=== PATIENT | female | born 1945 | race Caucasian/White ===

== ENCOUNTER 2016-04-27 09:47 | Observation (INO) | payer OTHER ==
[~2016-04-27] VITALS: Ht 170.2 cm; Wt 96.1 kg
[~2016-04-27 09:47] MED LIST: B COMPLETE1 EACH PO; BENADRYL25 MG PO; COLACE100 MG PO; DITROPAN5 MG PO; ELAVIL50 MG PO; FAMOTIDINE20 MG PO; FLEXERIL10 MG PO; GLIMEPIRIDE4 MG PO; HUMULIN N100 UNITS/ SC; LEVOFLOXACIN500 MG PO; LIVALO4 MG PO; LOPRESSOR50 MG PO; LOSARTAN POTASS50 MG PO; METFORMIN HCL500 MG PO; NITROSTAT0.4 MG SL; PREDNISONE20 MG PO; RANITIDINE HCL75 MG PO; ST. JOSEPH ASPI81 MG PO; STIOLTO RESPIMAT4 GM IH; TRENTAL400 MG PO; VITAMIN B12 100MCG PO
[2016-04-27 10:54] LABS: EOSINOPHIL (%) 4.4 % (0-5); EOSINOPHIL COUNT 0.3 K/uL (0-0.3); HEMATOCRIT 32.9 % (36.0-46.0); IMMATURE GRANULOCYTE (%) 0.3 % (0.0-0.7); IMMATURE GRANULOCYTE COUNT 0.2 K/uL; LYMPHOCYTE COUNT 1.5 K/uL (1.0-2.8); MCH 31.5 PG (29.0-34.0); MCHC 34.7 G/DL (30.0-36.0); MCV 90.9 FL (83-99); MEAN PLAT.VOLUME 9.4 uM^3 (9.5-12.4); MONOCYTE (%) 6.9 % (3-12); MONOCYTE COUNT 0.4 K/uL (0-0.8); NEUTROPHIL (%) 64.3 % (45-76); NEUTROPHIL COUNT 4.1 K/uL (1.8-6.4); PLATELET COUNT 163 K/uL (156-360); RBC DIS.WIDTH-CV 12.3 % (11.8-14.6); RBC DIS.WIDTH-SD 39.4 % (39-53); RED BLOOD COUNT 3.62 M/uL (3.80-5.20); WHITE BLOOD COUNT 6.4 K/uL (4.1-10.2)
[2016-04-27 11:02] LABS: CHLORIDE 102 mEq/L (99-109); POTASSIUM 4.4 mEq/L (3.7-5.4); SODIUM 139 mEq/L (136-147)
[2016-04-27 11:03] LABS: PROTHROMBIN TIME 10.4 (9.2-11.2)
[2016-04-27] MEDS ORDERED: LOSARTAN POTAS100 MG PO (11:03)
[2016-04-27 11:04] LABS: GLUCOSE 218 mg/dL (70-99)
[2016-04-27] MEDS ORDERED: LOPRESSOR25 MG PO (11:04)
[2016-04-27 11:06] LABS: ANION GAP 12 MEQ/L (2-14)
[2016-04-27 11:08] LABS: GFR ESTIMATE (CALCULATED) > 59 mL/min/
[2016-04-27] MEDS ORDERED: HYDROCHLOROTHIA25 MG PO (11:08)
[2016-04-27 11:09] LABS: UREA NITROGEN (BUN) 23 mg/dL (9-23)
[2016-04-27] MEDS ORDERED: LANTUS 3 M100 UNITS1 SC (11:09)
[2016-04-27] MEDS ORDERED: CLOPIDOGREL75 MG PO (11:09)
[2016-04-27] MEDS ORDERED: TERBINAFINE HC250 MG PO (11:12)
[2016-04-27] MEDS ORDERED: TRAMADOL HCL50 MG PO (11:12)
[2016-04-27] MEDS ORDERED: TYLENOL EXTRA500 MG PO (11:13)
[2016-04-27 11:14] LABS: TROP-I INTERPRETATION NEGATIVE; TROPONIN-I 0.02 ng/mL (0.0-0.30)
[2016-04-27 12:49] LABS: TROP-I INTERPRETATION NEGATIVE; TROPONIN-I 0.02 ng/mL (0.0-0.30)
[2016-04-27 13:50] VITALS: BP 152/85
[2016-04-27 17:38] LABS: POINT-OF-CARE METER ID UU13113700
[2016-04-27 18:23] LABS: TROP-I INTERPRETATION NEGATIVE; TROPONIN-I < 0.01 ng/mL (0.0-0.30)
[2016-04-27 20:00] VITALS: BP 152/79
[2016-04-27 21:12] LABS: POINT-OF-CARE METER ID UU13113700
[2016-04-27 23:49] VITALS: BP 140/80
[2016-04-28 01:01] LABS: TROP-I INTERPRETATION NEGATIVE; TROPONIN-I < 0.01 ng/mL (0.0-0.30)
[2016-04-28 04:40] VITALS: BP 189/78
[2016-04-28 07:53] VITALS: BP 138/90
[2016-04-28 08:04] LABS: POINT-OF-CARE METER ID UU14162513
[2016-04-28 10:59] VITALS: BP 132/90
[2016-04-28 12:33] LABS: POINT-OF-CARE METER ID UU14162513
[2016-05-03] MEDS ORDERED: PRILOSEC20 MG PO (16:38)
[2016-05-04] MEDS ORDERED: RANEXA500 MG PO (09:32)
== END 2016-04-28 14:31 | disposition home or self-care (01) ==
LOC: EME 09:47 → EDOF 11:22 → 5WEST 11:22
PROVIDERS: Emergency Medicine; Hospitalist
DX: R07.2 Precordial pain (principal); I25.10 Atherosclerotic heart disease of native coronary artery without angina pectoris; Z95.1 Presence of aortocoronary bypass graft; J44.9 Chronic obstructive pulmonary disease, unspecified; I10 Essential (primary) hypertension; E78.5 Hyperlipidemia, unspecified; I73.9 Peripheral vascular disease, unspecified; Z86.73 Personal history of transient ischemic attack (TIA), and cerebral infarction without residual deficits; Z87.891 Personal history of nicotine dependence; Z88.0 Allergy status to penicillin; Z88.2 Allergy status to sulfonamides; E11.9 Type 2 diabetes mellitus without complications; Z79.4 Long term (current) use of insulin; Z79.82 Long term (current) use of aspirin; Z79.02 Long term (current) use of antithrombotics/antiplatelets
CPT/HCPCS: 71020; 71275; 80048; 82948; 84484; 85025; 85610; 85730; 93005; 94640; 94640 76; 99202; 99281; 99285; G0378; J1815; S0028

== ENCOUNTER 2016-05-08 07:30 | Day surgery (SDC) | payer OTHER ==
[~2016-05-08] VITALS: Ht 170.2 cm; Wt 94.3 kg
[~2016-05-08 07:30] MED LIST changes: +CLOPIDOGREL75 MG PO; +HYDROCHLOROTHIA25 MG PO; +LANTUS 3 M100 UNITS1 SC; +LOPRESSOR25 MG PO; +LOSARTAN POTAS100 MG PO; +PRILOSEC20 MG PO; +RANEXA500 MG PO; +TERBINAFINE HC250 MG PO; +TRAMADOL HCL50 MG PO; +TYLENOL EXTRA500 MG PO
[2016-05-08 08:44] LABS: POINT-OF-CARE METER ID UU13113696
[2016-05-08 11:12] LABS: POINT-OF-CARE METER ID UU13113819
== END 2016-05-08 16:50 | disposition home or self-care (01) ==
LOC: CATH 07:30
PROVIDERS: Internal Medicine Cardiovascular Disease
DX: I25.810 Atherosclerosis of coronary artery bypass graft(s) without angina pectoris (principal); I25.84 Coronary atherosclerosis due to calcified coronary lesion; I73.9 Peripheral vascular disease, unspecified; I11.0 Hypertensive heart disease with heart failure; E11.9 Type 2 diabetes mellitus without complications; E78.2 Mixed hyperlipidemia; I48.0 Paroxysmal atrial fibrillation; J44.9 Chronic obstructive pulmonary disease, unspecified; Z86.73 Personal history of transient ischemic attack (TIA), and cerebral infarction without residual deficits; Z95.820 Peripheral vascular angioplasty status with implants and grafts; Z87.891 Personal history of nicotine dependence; Z98.890 Other specified postprocedural states; Z82.49 Family history of ischemic heart disease and other diseases of the circulatory system; Z83.49 Family history of other endocrine, nutritional and metabolic diseases; I50.9 Heart failure, unspecified; Z95.1 Presence of aortocoronary bypass graft; Z79.02 Long term (current) use of antithrombotics/antiplatelets; Z79.4 Long term (current) use of insulin; Z79.82 Long term (current) use of aspirin; Z88.0 Allergy status to penicillin; Z88.8 Allergy status to other drugs, medicaments and biological substances
CPT/HCPCS: 82948; C1760; C1769; C1887; C1894; J1644; J2250; J3010

== ENCOUNTER → 2017-03-29 | Outpatient (CLI) | payer OTHER | END | disposition home or self-care (01) | LOC: EKG 12:34 | DX: I07.1 Rheumatic tricuspid insufficiency (principal); I05.1 Rheumatic mitral insufficiency; R93.1 Abnormal findings on diagnostic imaging of heart and coronary circulation | CPT/HCPCS: 93306 ==

== ENCOUNTER 2017-06-02 21:25 | Inpatient (IN) | payer OTHER ==
[~2017-06-02] VITALS: Ht 167.6 cm; Wt 88.4 kg
[2017-06-02 22:46] LABS: HEMATOCRIT 29.5 % (36.0-46.0); HEMOGLOBIN 10.2 G/DL (11.9-15.5); MCH 33.1 PG (29.0-34.0); MCHC 34.6 G/DL (30.0-36.0); MCV 95.8 FL (83-99); PLATELET COUNT 153 K/uL (156-360); RBC DIS.WIDTH-CV 13.2 % (11.8-14.6); RBC DIS.WIDTH-SD 45.4 % (39-53); RED BLOOD COUNT 3.08 M/uL (3.80-5.20); WHITE BLOOD COUNT 12.2 K/uL (4.1-10.2)
[2017-06-02 22:48] LABS: ALBUMIN 3.9 g/dL (3.2-4.8); CHLORIDE 101 mEq/L (99-109)
[2017-06-02 22:49] LABS: POTASSIUM 4.3 mEq/L (3.7-5.4); SODIUM 137 mEq/L (136-147)
[2017-06-02 22:51] LABS: GLUCOSE 192 mg/dL (70-99); TOTAL PROTEIN 6.5 g/dL (6.4-8.3)
[2017-06-02 22:53] LABS: TOTAL BILIRUBIN 0.3 mg/dL (0.0-1.0)
[2017-06-02 22:54] LABS: ALKALINE PHOSPHATASE 54 IU/L (3-129); CREATININE 1.1 mg/dL (0.6-1.3); GFR ESTIMATE (CALCULATED) 52 mL/min/
[2017-06-02 22:56] LABS: AST (GOT) 11 IU/L (2-34); UREA NITROGEN (BUN) 28 mg/dL (9-23)
[2017-06-02 22:57] LABS: ALT (GPT) 10 IU/L (3-49)
[2017-06-02 22:58] LABS: LIPASE 345 U/L (1.0-51.0)
[2017-06-02 23:03] LABS: TROP-I INTERPRETATION NEGATIVE; TROPONIN-I < 0.01 ng/mL (0.0-0.30)
[2017-06-03] VITALS (8 sets, daily range): BP systolic 110–193; BP diastolic 51–81
[2017-06-03] MEDS ORDERED: ONE DAILY MULT1 EACH PO (00:44)
[2017-06-03 01:56] LABS: TRIGLYCERIDES 74 MG/DL (Normal: <150)
[2017-06-03 05:02] LABS: APPEARANCE CLEAR ((CLEAR)); BILIRUBIN NEGATIVE; BLOOD NEGATIVE; COLOR YELLOW ((YELLOW)); GLUCOSE (STRIP) 50; KETONES NEGATIVE; LEUKOCYTES NEGATIVE; NITRITE NEGATIVE; PROTEIN (STRIP) NEGATIVE; UCUL ADDED? NO; UROBILINOGEN 0.2 MG/DL (0.2-1.0)
[2017-06-03 06:05] LABS: BASOPHIL (%) 0.2 % (0-1); EOSINOPHIL (%) 0.6 % (0-5); EOSINOPHIL COUNT 0.1 K/uL (0-0.3); HEMATOCRIT 29.5 % (36.0-46.0); HEMOGLOBIN 9.8 G/DL (11.9-15.5); IMMATURE GRANULOCYTE (%) 0.3 % (0.0-0.7); LYMPHOCYTE (%) 10.6 % (15-42); MCH 31.9 PG (29.0-34.0); MCHC 33.2 G/DL (30.0-36.0); MCV 96.1 FL (83-99); MONOCYTE (%) 8.1 % (3-12); MONOCYTE COUNT 0.8 K/uL (0-0.8); NEUTROPHIL (%) 80.2 % (45-76); NEUTROPHIL COUNT 7.6 K/uL (1.8-6.4); PLATELET COUNT 143 K/uL (156-360); RBC DIS.WIDTH-CV 13.2 % (11.8-14.6); RED BLOOD COUNT 3.07 M/uL (3.80-5.20); WHITE BLOOD COUNT 9.5 K/uL (4.1-10.2)
[2017-06-03 06:25] LABS: CHLORIDE 102 MEQ/L (99-109); CREATININE 0.9 MG/DL (0.6-1.3); GFR ESTIMATE (CALCULATED) > 59 mL/min/; GLUCOSE 219 mg/dL (70-99); LIPASE 4 U/L (1.0-51.0); POTASSIUM 3.7 MEQ/L (3.7-5.4); SODIUM 138 MEQ/L (136-147); UREA NITROGEN (BUN) 21 mg/dL (9-23)
[2017-06-04 04:10] VITALS: BP 125/78
[2017-06-04 05:56] LABS: BASOPHIL (%) 0.4 % (0-1); EOSINOPHIL (%) 3.6 % (0-5); EOSINOPHIL COUNT 0.3 K/uL (0-0.3); HEMATOCRIT 28.7 % (36.0-46.0); HEMOGLOBIN 9.4 G/DL (11.9-15.5); IMMATURE GRANULOCYTE (%) 0.7 % (0.0-0.7); LYMPHOCYTE (%) 21.7 % (15-42); LYMPHOCYTE COUNT 1.6 K/uL (1.0-2.8); MCH 32.1 PG (29.0-34.0); MCHC 32.8 G/DL (30.0-36.0); MONOCYTE (%) 9.3 % (3-12); MONOCYTE COUNT 0.7 K/uL (0-0.8); NEUTROPHIL (%) 64.3 % (45-76); NEUTROPHIL COUNT 4.8 K/uL (1.8-6.4); PLATELET COUNT 153 K/uL (156-360); RBC DIS.WIDTH-SD 46.5 % (39-53); RED BLOOD COUNT 2.93 M/uL (3.80-5.20); WHITE BLOOD COUNT 7.4 K/uL (4.1-10.2)
[2017-06-04 06:40] LABS: ALBUMIN 3.5 G/DL (3.2-4.8); ALKALINE PHOSPHATASE 40 IU/L (3-129); ALT (GPT) 8 IU/L (3-49); AST (GOT) 8 IU/L (2-34); CHLORIDE 103 MEQ/L (99-109); CREATININE 1.1 MG/DL (0.6-1.3); GFR ESTIMATE (CALCULATED) 52 mL/min/; GLUCOSE 142 mg/dL (70-99); LIPASE 13 U/L (1.0-51.0); POTASSIUM 3.8 MEQ/L (3.7-5.4); SODIUM 140 MEQ/L (136-147); TOTAL BILIRUBIN 0.3 MG/DL (0.0-1.0); TOTAL PROTEIN 5.9 G/DL (6.4-8.3); UREA NITROGEN (BUN) 23 mg/dL (9-23)
[2017-06-04 07:28] VITALS: BP 148/68
[2017-06-04 15:29] VITALS: BP 154/70
[2017-06-04 20:41] VITALS: BP 145/67
[2017-06-05 00:30] VITALS: BP 125/62
[2017-06-05 04:04] VITALS: BP 109/58
[2017-06-05 06:09] LABS: CREATININE 1.2 MG/DL (0.6-1.3)
[2017-06-05] MEDS ORDERED: EXFORGE 5/321 TABLET PO (07:00)
[2017-06-05 08:25] VITALS: BP 139/63
[2017-06-05 10:50] VITALS: BP 140/63
[2017-06-05 15:46] VITALS: BP 109/55
[2017-06-05 23:47] VITALS: BP 140/68
[2017-06-06 07:17] VITALS: BP 142/71
[2017-06-06] MEDS ORDERED: LEVAQUIN500 MG PO (10:35)
[2017-06-06] MEDS ORDERED: BREO ELLIPTA I1 EACH IH (10:35)
[2017-06-06] MEDS ORDERED: TRULICITY0.75 MG/0. SC (10:37)
== END 2017-06-06 16:37 | disposition home health service (06) | DRG 203 ==
LOC: EME 21:25 → EDOF 06-03 01:04 → 3EAST 06-03 01:04 → ENRESERV 06-03 01:05 → 3EAST 06-03 02:53
PROVIDERS: Emergency Medicine; Family Medicine
DX: J21.9 Acute bronchiolitis, unspecified (principal); I65.23 Occlusion and stenosis of bilateral carotid arteries; E86.0 Dehydration; Z95.1 Presence of aortocoronary bypass graft; I25.10 Atherosclerotic heart disease of native coronary artery without angina pectoris; N39.41 Urge incontinence; Z79.4 Long term (current) use of insulin; E11.51 Type 2 diabetes mellitus with diabetic peripheral angiopathy without gangrene; E78.5 Hyperlipidemia, unspecified; I10 Essential (primary) hypertension; K80.20 Calculus of gallbladder without cholecystitis without obstruction; Z79.82 Long term (current) use of aspirin; Y95 Nosocomial condition; Z86.73 Personal history of transient ischemic attack (TIA), and cerebral infarction without residual deficits; G47.00 Insomnia, unspecified
CPT/HCPCS: 71046; 74177; 76705; 80048; 80053; 81003; 82140; 82565; 82948; 83690; 84478; 84484; 84520; 85025; 85027; 94010; 94640; 94640 76; 94799; 99202; 99281; 99285; J0692; J0696; J1644; J1815; J2405; J7030

== ENCOUNTER 2017-06-24 14:53 | Observation (INO) | payer OTHER ==
[~2017-06-24] VITALS: Ht 170.2 cm; Wt 92.2 kg
[~2017-06-24 14:53] MED LIST changes: +BREO ELLIPTA I1 EACH IH; +EXFORGE 5/321 TABLET PO; +GLUCOPHAGE1000 MG PO; +LEVAQUIN500 MG PO; +LO-DOSE ASPIRIN81 M1 PO; +ONE DAILY MULT1 EACH PO; -ST. JOSEPH ASPI81 MG PO; +TRULICITY0.75 MG/0. SC
[2017-06-24 15:38] LABS: HEMATOCRIT 31.4 % (36.0-46.0); HEMOGLOBIN 10.8 G/DL (11.9-15.5); MCH 33.1 PG (29.0-34.0); MCHC 34.4 G/DL (30.0-36.0); MCV 96.3 FL (83-99); PLATELET COUNT 141 K/uL (156-360); RBC DIS.WIDTH-CV 12.8 % (11.8-14.6); RBC DIS.WIDTH-SD 45.8 % (39-53); RED BLOOD COUNT 3.26 M/uL (3.80-5.20); WHITE BLOOD COUNT 6.7 K/uL (4.1-10.2)
[2017-06-24 16:02] LABS: TROP-I INTERPRETATION NEGATIVE; TROPONIN-I < 0.01 ng/mL (0.0-0.30)
[2017-06-24 16:06] LABS: CHLORIDE 106 MEQ/L (99-109); CREATININE 0.9 MG/DL (0.6-1.3); GFR ESTIMATE (CALCULATED) > 59 mL/min/; GLUCOSE 108 mg/dL (70-99); POTASSIUM 4.5 MEQ/L (3.7-5.4); SODIUM 138 MEQ/L (136-147); UREA NITROGEN (BUN) 27 mg/dL (9-23)
[2017-06-24] MEDS ORDERED: TRULICITY0.75 MG/0. SC (16:22)
[2017-06-24] MEDS ORDERED: ZANTAC150 MG PO (16:27)
[2017-06-24 16:59] VITALS: BP 165/74
[2017-06-24 19:24] LABS: TROP-I INTERPRETATION NEGATIVE; TROPONIN-I < 0.01 ng/mL (0.0-0.30)
[2017-06-24 19:36] VITALS: BP 166/71
[2017-06-24 23:51] VITALS: BP 154/70
[2017-06-25 01:28] LABS: TROP-I INTERPRETATION NEGATIVE; TROPONIN-I < 0.01 ng/mL (0.0-0.30)
[2017-06-25 03:43] VITALS: BP 148/70
[2017-06-25 07:40] VITALS: BP 144/67
[2017-06-25 07:42] LABS: TROP-I INTERPRETATION NEGATIVE; TROPONIN-I 0.01 ng/mL (0.0-0.30)
== END 2017-06-25 10:30 | disposition home or self-care (01) ==
LOC: EME 14:53 → EDOF 16:12 → 4SOUTH 16:12 → ENRESERV 16:22 → 4SOUTH 16:48 → ENPENDDIS 06-25 → 4SOUTH 06-25 10:30
PROVIDERS: Emergency Medicine; Hospitalist
DX: R07.9 Chest pain, unspecified (principal); I10 Essential (primary) hypertension; E11.51 Type 2 diabetes mellitus with diabetic peripheral angiopathy without gangrene; I25.10 Atherosclerotic heart disease of native coronary artery without angina pectoris; I65.23 Occlusion and stenosis of bilateral carotid arteries; F51.04 Psychophysiologic insomnia; N39.41 Urge incontinence; Z95.1 Presence of aortocoronary bypass graft; Z98.890 Other specified postprocedural states; E78.5 Hyperlipidemia, unspecified; Z87.891 Personal history of nicotine dependence; Z80.1 Family history of malignant neoplasm of trachea, bronchus and lung; Z88.0 Allergy status to penicillin; Z88.2 Allergy status to sulfonamides; Z88.8 Allergy status to other drugs, medicaments and biological substances
CPT/HCPCS: 71046; 80048; 82948; 84484; 85027; 85379; 93005; 99281; 99285; G0378; J1650